=== PATIENT | male | born 1975 | race Caucasian/White ===

== ENCOUNTER 2021-07-10 16:53 | Inpatient (IN) | payer MEDICAID ==
[~2021-07-10] VITALS: Ht 177.8 cm; Wt 153.5 kg
[2021-07-10] MEDS ORDERED: SODIUM CHLORIDE 0.9% 500 ML IV ONE (17:30)
[2021-07-10] MEDS ORDERED: DILTIAZEM HCL 5 MG/ML 5 ML VIAL IVP ONE ×2 (17:30→19:00)
[2021-07-10 18:00] LABS: BASOPHILS % (AUTO) 0.5 % (0.0-2.0); EOSINOPHILS % (AUTO) 5.5 % (1.0-6.0); HEMATOCRIT 48.3 % (41-53); HEMOGLOBIN 15.8 g/dL (13.5-17.5); LYMPHOCYTES # (AUTO) 3.8 K/uL (1.0-4.8); LYMPHOCYTES % (AUTO) 29.6 % (22.0-44.0); MEAN CORPUSCULAR HEMOGLOBIN 26.2 pg (26.0-34.0); MEAN CORPUSCULAR HGB CONC 32.8 G/dL (31.0-37.0); MEAN CORPUSCULAR VOLUME 80 fL (80-100); MONOCYTES # (AUTO) 0.8 K/uL (0.1-1.0); MONOCYTES % (AUTO) 6.1 % (2.0-9.0); NEUTROPHILS # (AUTO) 7.4 K/uL (1.8-7.7); NEUTROPHILS % (AUTO) 58.3 % (40.0-70.0); PLATELET COUNT (AUTO) 314 K/uL (150-450); RED BLOOD CELL COUNT(AUTO) 6.04 MIL/uL (4.50-5.90)
[2021-07-10 18:09] LABS: CALCIUM, TOTAL 9.2 mg/dL (8.8-10.5); CREATININE 1.52 mg/dL (0.60-1.30); POTASSIUM 3.5 mmol/L (3.5-5.1)
[2021-07-10 18:18] LABS: ALBUMIN 3.3 g/dL (3.4-5.0); BILIRUBIN,TOTAL 0.9 mg/dL (0.1-1.0); TOTAL PROTEIN, SERUM 7.3 g/dL (6.4-8.2)
[2021-07-10 19:26] LABS: PROTHROMBIN TIME 10.9 SEC (9.4-11.6)
[2021-07-10] MEDS ORDERED: ACETAMINOPHEN 325 MG TABLET PO PRN (20:00)
[2021-07-10 20:37] LABS: COVID AG,FIA SOURCE NASOPHARYNGEAL
[2021-07-10] MEDS: DOCUSATE SODIUM 100 MG CAPSULE PO SCH (21:00)
[2021-07-10 21:02] LABS: AMPHET/METH SCREEN,URINE NEGATIVE (NEGATIVE); BARBITURATE SCREEN, URINE NEGATIVE (NEGATIVE); BENZODIAZEPINES SCREEN,URINE NEGATIVE (NEGATIVE); CANNABINOID SCREEN,URINE POSITIVE (NEGATIVE); COCAINE SCREEN,URINE NEGATIVE (NEGATIVE); METHADONE SCREEN, URINE NEGATIVE (NEGATIVE); OPIATE SCREEN,URINE NEGATIVE (NEGATIVE)
[2021-07-10 21:03] LABS: PHENCYCLIDINE SCREEN,URINE NEGATIVE (NEGATIVE)
[2021-07-10 21:33] VITALS: BP 108/73
[2021-07-10] MEDS: APIXABAN 5 MG TABLET PO SCH (21:34)
[2021-07-10] MEDS: DIGOXIN 250 MCG/ML 2 ML AMP IVP SCH (21:35)
[2021-07-10] MEDS: ZOLPIDEM TARTRATE 5 MG TABLET PO PRN (23:11)
[2021-07-11] VITALS (7 sets, daily range): BP systolic 98–132; BP diastolic 61–77
[2021-07-11] MEDS ORDERED: INFLUENZA VIRUS VACCINE QVS 2021-22 (6MO+)/PF 60 MCG/0.5 ML SYRINGE IM. ONE (02:30)
[2021-07-11] MEDS: FAMOTIDINE 20 MG TABLET PO SCH (08:19)
[2021-07-11] MEDS: DOCUSATE SODIUM 100 MG CAPSULE PO SCH ×2 (08:19→20:36)
[2021-07-11] MEDS: APIXABAN 5 MG TABLET PO SCH ×2 (08:19→20:36)
[2021-07-11] MEDS: DIGOXIN 250 MCG/ML 2 ML AMP IVP SCH (08:19)
[2021-07-11] MEDS ORDERED: DILTIAZEM HCL 5 MG/ML 5 ML VIAL IVP STA (09:16)
[2021-07-11] MEDS: DILTIAZEM HCL 30 MG TABLET PO SCH ×3 (12:24→23:30)
[2021-07-11] MEDS: ZOLPIDEM TARTRATE 5 MG TABLET PO PRN (23:30)
[2021-07-12] VITALS (7 sets, daily range): BP systolic 94–140; BP diastolic 38–79
[2021-07-12] MEDS: DILTIAZEM HCL 30 MG TABLET PO SCH (06:01)
[2021-07-12 07:12] LABS: BASOPHILS % (AUTO) 0.5 % (0.0-2.0); EOSINOPHILS % (AUTO) 4.9 % (1.0-6.0); HEMOGLOBIN 16.8 g/dL (13.5-17.5); LYMPHOCYTES # (AUTO) 3.4 K/uL (1.0-4.8); LYMPHOCYTES % (AUTO) 29.9 % (22.0-44.0); MEAN CORPUSCULAR HEMOGLOBIN 26.3 pg (26.0-34.0); MEAN CORPUSCULAR HGB CONC 32.9 G/dL (31.0-37.0); MEAN CORPUSCULAR VOLUME 80 fL (80-100); MONOCYTES # (AUTO) 0.7 K/uL (0.1-1.0); MONOCYTES % (AUTO) 6.3 % (2.0-9.0); NEUTROPHILS # (AUTO) 6.5 K/uL (1.8-7.7); NEUTROPHILS % (AUTO) 58.4 % (40.0-70.0); PLATELET COUNT (AUTO) 284 K/uL (150-450); RED BLOOD CELL COUNT(AUTO) 6.38 MIL/uL (4.50-5.90)
[2021-07-12 07:22] LABS: CALCIUM, TOTAL 8.8 mg/dL (8.8-10.5); CREATININE 1.34 mg/dL (0.60-1.30)
[2021-07-12 07:24] LABS: POTASSIUM 2.9 mmol/L (3.5-5.1)
[2021-07-12] MEDS ORDERED: POTASSIUM CHLORIDE 20 MEQ ER TABLET PO ONE ×2 (07:45→16:30)
[2021-07-12 07:59] LABS: MAGNESIUM 1.8 mg/dL (1.80-2.40)
[2021-07-12] MEDS: FAMOTIDINE 20 MG TABLET PO SCH (08:34)
[2021-07-12] MEDS: DOCUSATE SODIUM 100 MG CAPSULE PO SCH ×2 (08:34→20:57)
[2021-07-12] MEDS: APIXABAN 5 MG TABLET PO SCH ×2 (08:34→20:57)
[2021-07-12] MEDS: DILTIAZEM HCL CD 120 MG ER CAPSULE PO SCH (08:34)
[2021-07-12] MEDS ORDERED: MAGNESIUM OXIDE 400 MG TABLET PO ONE (10:00)
[2021-07-12] MEDS: METOPROLOL TARTRATE 25 MG TABLET PO SCH ×2 (10:21→20:57)
[2021-07-12] MEDS: ZOLPIDEM TARTRATE 5 MG TABLET PO PRN (22:14)
[2021-07-13 05:45] VITALS: BP 137/84
[2021-07-13 07:54] VITALS: BP 131/87
[2021-07-13] MEDS: METOPROLOL TARTRATE 25 MG TABLET PO SCH (08:24)
[2021-07-13] MEDS: DILTIAZEM HCL CD 120 MG ER CAPSULE PO SCH (08:24)
[2021-07-13] MEDS: DOCUSATE SODIUM 100 MG CAPSULE PO SCH (08:24)
[2021-07-13] MEDS: APIXABAN 5 MG TABLET PO SCH (08:25)
[2021-07-13] MEDS: FAMOTIDINE 20 MG TABLET PO SCH (08:25)
[2021-07-13 08:39] VITALS: BP 142/101
[2021-07-13 08:40] LABS: POTASSIUM 3.2 mmol/L (3.5-5.1)
[2021-07-13 08:41] LABS: CALCIUM, TOTAL 8.9 mg/dL (8.8-10.5); CREATININE 1.44 mg/dL (0.60-1.30)
[2021-07-13] MEDS ORDERED: METOPROLOL TARTRATE 25 MG TABLET PO ONE (10:00)
[2021-07-13] MEDS ORDERED: POTASSIUM CHLORIDE 20 MEQ ER TABLET PO ONE (10:00)
[2021-07-13] MEDS ORDERED: METO50 PO (11:33)
[2021-07-13] MEDS ORDERED: APIX5TAB PO (11:33)
[2021-07-13] MEDS ORDERED: DILT120C89 PO (11:33)
[2021-07-13 11:34] VITALS: BP 112/68
[2021-07-13] MEDS ORDERED: POTA-92 PO (11:38)
[2021-07-13] MEDS ORDERED: METOPROLOL TARTRATE 50 MG TABLET PO SCH (21:00)
== END 2021-07-13 12:10 | disposition home or self-care (01) | DRG 201 ==
LOC: EMS 16:56 → 5N 20:00
PROVIDERS: ADMIT Internal Medicine; ATTEND Internal Medicine
DX: I48.91 Unspecified atrial fibrillation (principal); I47.2 Ventricular tachycardia; N17.9 Acute kidney failure, unspecified; I12.9 Hypertensive chronic kidney disease with stage 1 through stage 4 chronic kidney disease, or unspecified chronic kidney disease; E87.6 Hypokalemia; D72.829 Elevated white blood cell count, unspecified; F12.90 Cannabis use, unspecified, uncomplicated; G47.33 Obstructive sleep apnea (adult) (pediatric); N18.9 Chronic kidney disease, unspecified; Z20.822 Contact with and (suspected) exposure to COVID-19; J45.909 Unspecified asthma, uncomplicated; Z79.01 Long term (current) use of anticoagulants; Z79.899 Other long term (current) drug therapy; Z86.16 Personal history of COVID-19
CPT/HCPCS: 71045; 80048; 80053; 83735; 83880; 84132; 84443; 84484; 85025; 85379; 85610; 85730; 93005; 93306; 99285; J1160; J3490; J7040; 36415-L1; 36415-TC